=== PATIENT | male | born 1990 ===

== ENCOUNTER 2016-07-27 21:05 | Emergency (ER) | payer SELFPAY ==
[2016-07-27] MEDS ORDERED: Sodium Chloride 0.9% 1,000 ML PRIMARY IV ONE (21:23)
[2016-07-27] MEDS ORDERED: ONDANSETRON 4 MG/2 ML VIAL IVP ONE (21:23)
[2016-07-27] MEDS ORDERED: LORazepam 2 MG/1 ML VIAL IVP ONE (21:23)
[2016-07-27 21:27] LABS: BASOPHILS % (AUTO) 1.9 % (0-1); EOSINOPHILS # (AUTO) 0.03 10*3/UL; EOSINOPHILS % (AUTO) 0.6 % (0-8); HEMOGLOBIN 17.4 g/dL (14.0-18.0); LYMPHOCYTES # (AUTO) 2.91 10*3/uL; MEAN CORPUSCULAR HEMOGLOBIN 32.5 PG (27-31); MEAN CORPUSCULAR HGB CONC 34.8 g/dL (33-37); MEAN CORPUSCULAR VOLUME 93.3 FL (80-90); MEAN PLATELET VOLUME 10.3 FL (7.4-12.2); MONOCYTES # (AUTO) 0.54 10*3/UL (0.3-0.8); MONOCYTES % (AUTO) 10.2 % (5-15); NEUTROPHILS # (AUTO) 1.69 10*3/UL; RED BLOOD COUNT 5.36 10^6/uL (4.70-6.10)
[2016-07-27 21:28] LABS: BLOOD UREA NITROGEN 11 mg/dL (7-22); BUN/CREATININE RATIO 12.22 (6-20); CALCIUM 9.6 mg/dL (8.7-10.7); EST GLOMERULAR FILTRATION > 60 (>60 ml/min/1.73m(2)); MAGNESIUM 1.9 mg/dL (1.6-2.4); PLATELET MORPHOLOGY COMMENT NORMAL MORPHOLOGY (NORM); RBC MORPHOLOGY COMMENT NORMAL MORPHOLOGY (NORM); SERUM ALBUMIN 4.9 g/dL (3.5-4.8); WBC MORPHOLOGY COMMENT NORMAL MORPHOLOGY (NORM)
--- NOTE | 2016-07-27 21:28 | PDOC ---
Alcohol/Drug Abuse HPI - General Chief Complaint: Drug / Alcohol Use &/or Abuse Stated Complaint: WANTS ETOH TREATMENT Date Seen by Provider: 07/27/16 Time Seen by Provider: 21:15 Source: POSITIVE: Patient, Police, EMS Exam Limitations: POSITIVE: Intoxication Nurse's Notes Reviewed & Considered: Yes EMS Report Reviewed & Considered: Verbal - History of Present Illness Initial Comments: Patient was brought in by EMS after he was stopped by police having violated several traffic loss. These included running a stop sign, driving without headlights on, and driving on the wrong side of the road. Patient smelled of alcohol but denied having had any alcohol in 2 days. He states he normally drinks pint half a day and was last sober over 2 months ago. 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 He denies any fever chills or sweats, nausea vomiting or diarrhea, no headache, no chest pain, no shortness of breath, no cough, no hematuria or dysuria. Timing: REPORTS: Unknown Duration: Unknown Severity: Moderate Context: REPORTS: Desires To Detox Alcohol, Chronic ETOH Dependence Situational Problems: REPORTS: Loss Of Job Similar Symptoms Previously: Yes Recent Care Received: REPORTS: Denies ROS - Limitations ROS Limitations: Intoxication (Due to the patient's intoxicated state further review of systems is unavailable.) Alcohol/Drug Abuse PE - General Appearance General Appearance: POSITIVE: No Acute Distress - HEENT HEENT: POSITIVE: Head Inspection Nml, Eyes Inspection Nml, Ears Inspection Nml, Nose Inspection Nml, Oral/Dental Inspect. Nml, Pharynx Inspect. Nml, PERRL, EOMI - Pupil Size Pupil Size: 5 mm: Bilateral - Neurological/Psychological Neurological: POSITIVE: Alert, Oriented X 3, Other (Intoxication) Cranial Nerves: POSITIVE: Normal As Tested Peripheral Exam: POSITIVE: No Motor Deficits, No Sensory Deficits - Neck Neck: POSITIVE: Supple, Non Tender - Respiratory Respiratory: POSITIVE: No Respiratory Distress, Breath Sounds Normal - CVS CVS: POSITIVE: Regular Rate and Rhythm, Heart Sounds Normal - Abdomen Abdomen: Soft: (All Quadrants), Normal Bowel Sounds: (All Quadrants), Denies Tenderness: (All Quadrants) - Skin Skin: POSITIVE: Normal for Race, No Rash, Warm, Dry - Extremities Extremity: Non-Tender: (All Extremities), Normal ROM: (All Extremities), Normal Inspection: (All Extremities), Pelvis Stable: (All Extremities) Alcohol/Drug Abuse Progress - Results Reviewed by me Lab Results Reviewed: Yes Lab Results:: Laboratory Results 07/27/16 Range/Units 21:20 WBC 5.28 (4.8-10.8) 10^3/uL RBC 5.36 (4.70-6.10) 10^6/uL Hgb 17.4 (14.0-18.0) g/dL Hct 50.0 (42.0-52.0) % MCV 93.3 H (80-90) FL MCH 32.5 H (27-31) PG MCHC 34.8 (33-37) g/dL RDW Std Deviation 48.0 (39-50) fL RDW Coeff of Ines 14.1 (11.5-14.5) % Plt Count 252 (140-350) 10*3/uL MPV 10.3 (7.4-12.2) FL Immature Gran % (Auto) 0.2 (0-5) % Neut % (Auto) 32.0 L (50-80) % Lymph % (Auto) 55.1 H (10-50) % [place] % (Auto) 10.2 (5-15) % Eos % (Auto) 0.6 (0-8) % Baso % (Auto) 1.9 H (0-1) % Immature Gran # (Auto) 0.01 10*3/UL Neut # (Auto) 1.69 10*3/UL Lymph # (Auto) 2.91 10*3/uL [place] # (Auto) 0.54 (0.3-0.8) 10*3/UL Eos # (Auto) 0.03 10*3/UL Baso # (Auto) 0.10 10*3/UL WBC Morphology Comment Normal morphology (NORM) Plt Morphology Comment Normal morphology (NORM) RBC Morph Comment Normal morphology (NORM) Sodium 141 (135-145) meq/L Potassium 3.8 (3.8-5.2) meq/L Chloride 99 (98-112) meq/L Carbon Dioxide 22 L (23-33) meq/L Anion Gap 20 (5-20) BUN 11 (7-22) mg/dL Creatinine 0.9 (0.70-1.50) mg/dL Estimated GFR > 60 (>60 ml/min/1.73m(2)) BUN/Creatinine Ratio 12.22 (6-20) Glucose 112 H (78-110) mg/dL Calculated Osmolality 291.0 (267-292) mOsm/kg Calcium 9.6 (8.7-10.7) mg/dL Magnesium 1.9 (1.6-2.4) mg/dL Total Bilirubin 1.4 H (0.3-1.2) mg/dL GGT 111 H (8-78) IU/L AST 144 H (21-57) IU/L ALT 123 H (21-72) IU/L Alkaline Phosphatase 90 (38-126) IU/L Total Protein 9.0 H (6.1-8.0) g/dL Albumin 4.9 H (3.5-4.8) g/dL Globulin 4.1 (2.50-4.10) g/dL Albumin/Globulin Ratio 1.10 L (1.3-2.0) mg/g Serum Alcohol 377 H (0-10) mg/dL - Patient's Progress Pain Medication Addressed: POSITIVE: Not Applicable Re-Examine Time: 22:03 Status: POSITIVE: Improved MDM / ED Course: Patient was evaluated, an IV started, blood drawn and sent to the lab for studies. He received a liter of normal saline, Zofran. Findings: LFTs are elevated. Gamma GT is elevated 111. Blood alcohol is 377. Assessment: #1 acute alcohol intoxication. #2 mild dehydration. Plan: Discharge to custody of police. - Consult Counseled: POSITIVE: Patient, RE: Lab Results, RE: DX - Treatment Treatment: POSITIVE: IV Fluids Patient Care Time - Estimated PCT Patient Care Time (In Minutes): 30 Vital Signs - VS Reviewed Vital Signs Reviewed: Yes Discharge Clinical Impression: Alcohol intoxication, Continuous chronic alcoholism Discharge Disposition: Discharged to Custody of Law Enforcement Condition: Stable Patient Instructions Given at Discharge: Alcohol Intoxication (ED) Date Decision to Transfer to Another Facility: 07/27/16 Time Decision to Transfer to Another Facility: 22:05
[2016-07-27 21:36] LABS: GAMMA GLUTAMYL TRANSPEPTIDASE 111 IU/L (8-78)
[2016-07-27 21:53] LABS: FREE T4 (FREE THYROXINE) 0.78 ng/dL (0.93-1.71)
[2016-07-27 22:17] LABS: BILIRUBIN,URINE NEGATIVE (NEG); COLOR,URINE YELLOW; GLUCOSE, URINE (UA) NEGATIVE (NEG); NITRATE,URINE NEGATIVE (NEG); OCCULT BLOOD,URINE NEGATIVE (NEG); PROTEIN,URINE NEGATIVE (NEG); UROBILINOGEN,URINE 0.2 EU/dL (0.2)
[2016-07-27 22:20] LABS: CLARITY,URINE CLEAR (CLEAR); URINE SAMPLE TYPE CLEAN CATCH URINE; URINE SPECIFIC GRAVITY - MAN 1.004
[2016-07-27 22:26] LABS: AMPHETAMINE SCREEN NEGATIVE (NEG); CANNABINOID SCREEN,URINE NEGATIVE (NEG); COCAINE SCREEN NEGATIVE (NEG); METHADONE URINE SCREEN NEGATIVE (NEG); METHAMPHETAMINES SCREEN,URINE NEGATIVE (NEG); OPIATE SCREEN,URINE NEGATIVE (NEG)
[2016-07-27 23:57] VITALS: RESP 16; TEMP 98
== END 2016-07-27 22:35 ==
LOC: ER 21:05
DX: F10.129 Alcohol abuse with intoxication, unspecified (principal)
CPT/HCPCS: 80053; 80305; 80320; 81003; 82977; 83735; 84439; 84443; 85025; 96361; 96374; 96375; 99283; J2060; J2405